=== PATIENT | female | born 1955 | race Caucasian/White ===

== ENCOUNTER 2022-01-03 09:38 | Outpatient (CLI) | payer OTHER, SELFPAY ==
--- NOTE | ~2022-01-03 | MM_ITS ---
EXAMINATION: MM screening dorothea BI w adriel HISTORY: Screening TECHNIQUE: Craniocaudal and mediolateral oblique 3-D tomosynthesis images were obtained and synthetic 2-D images were generated. CAD analysis was submitted and interpreted. COMPARISON: No prior mammogram is available for comparison at this institution. BREAST PARENCHYMAL COMPOSITION: There are scattered areas of fibroglandular density. FINDINGS: There is no evidence of suspicious mass, calcification, or architectural distortion to sugg est malignancy in either breast. There has been no suspicious interval change. IMPRESSION: 1. No mammographic evidence of malignancy. 2. Recommend routine screening mammography in one year. BI-RADS Category 1: Negative Reviewed, dictated and finalized at location A.
== END 2022-01-03 09:39 | disposition home or self-care (01) ==
DX: Z12.31 Encounter for screening mammogram for malignant neoplasm of breast (principal)
CPT/HCPCS: 77063; 77067

== ENCOUNTER 2024-11-19 07:53 | Emergency (ER) | payer MEDICARE, MEDICAID, SELFPAY ==
[2024-11-19 07:56] VITALS: BP 119/66; PULSE 63; RESP 16; TEMP 36.3; O2SAT 100
[2024-11-19] MEDS: SODIUM CHLORIDE 0.9% IV 1,000 ML 999 ML IV CONT (08:27)
[2024-11-19 08:39] LABS: Basophils Percent Auto 0.3 % (0.2-1.2); Eosinophils Absolute Auto 0.1 K/mm3 (0-0.3); Eosinophils Percent Auto 2.1 % (0-4.4); Hematocrit 37.3 % (37.0-47.0); Hemoglobin 11.4 g/dL (12.0-15.0); Immature Granulocyte Absolute 0.01 K/mm3 (0.00-0.031); Immature Granulocyte Percent A 0.2 % (0-0.5); Lymphocytes Absolute Auto 2.02 K/mm3 (0.9-3.2); Lymphocytes Percent Auto 33.2 % (18.3-44.2); Mean Corpuscular HGB Conc 30.6 g/dl (32-36); Mean Corpuscular Hemoglobin 30.8 pg (26-34); Mean Corpuscular Volume 100.8 fl (80-100); Mean Platelet Volume 10.7 fl (7.4-10.4); Monocytes Absolute Auto 0.4 K/mm3 (0.1-0.6); Monocytes Percent Auto 6.7 % (2.6-8.5); Neutrophils Absolute Auto 3.5 K/mm3 (1.3-6.7); Neutrophils Percent Auto 57.5 % (45.5-73.1); Platelet Count Result 221 k/mm3 (150-375); Red Cell Distribution Width 13.3 % (11.5-14.5); White Blood Count 6.1 K/mm3 (4.5-10.0)
[2024-11-19 08:46] LABS: Alanine Aminotransferase 12 U/L (6-35); Albumin Level 3.8 g/dL (3.5-5.1); Alkaline Phosphatase 104 U/L (38-126); Anion Gap 6 mmol/L (4-12); Aspartate Amino Transferase 21 U/L (14-36); Bilirubin,Total 0.5 mg/dL (0.2-1.3); Blood Urea Nitrogen 20 mg/dL (7-17); Calcium 9.3 mg/dL (8.4-10.2); Carbon Dioxide 29 mmol/L (22-30); Chloride 106 mmol/L (98-107); Estimated CRCL calculation 49 ml/min; Estimated Glomerular Filt Rate > 60; Glucose 80 mg/dL (65-110); Potassium 3.9 mmol/L (3.4-5.0); Sodium 141 mmol/L (137-145)
[2024-11-19 09:47] LABS: Add Urine Microscopic? YES; Appearance Urine Turbid (Clear); Bacteria Urine 4+ /hpf; Bilirubin Urine Negative (Negative); Blood Urine 2+ (Negative); Color Urine Dark Yellow (Yellow); Glucose Urine UA Negative (Negative); Ketones Urine Trace mg/dL (Negative); Leukocyte Esterase Ur 3+ LEU/UL (Negative); Nitrate Urine Positive (Negative); Non Pathogenic Casts 0-2; Protein Urine 1+ mg/dL (Negative); Specific Grav Ur 1.025 (1.001-1.035); Squamous Epithelial Cell Urine Occasional /hpf (Few); Urobilinogen Urine 0.2 mg/dL (<2.0); WBC Urine >100 /hpf (0-3); pH Urine 5.5 (5.0-9.0)
--- NOTE | 2024-11-19 10:46 | ED.GENADULT ---
HPI - General Adult General Chief complaint: Fall Stated complaint: fall Time Seen by Provider: 11/19/24 08:14 History of Present Illness HPI narrative: Patient is a 69-year-old female who presents ER by EMS after a fall at her care center. Reports right knee pain and pain to the back of her head. Denies LOC. Unable to give a good explanation of how she fell so she is orient x4. She is not on any blood thinning medications. Has what looks to be a chronic deformity to the right knee has discomfort there. Old bruising right milan and left forearm. Related Data Home Medications ?Medication ?Instructions ?Recorded ?Confirmed ?Last Taken ?Type acetaminophen 500 mg capsule 500 mg PO Q6H PRN 06/14/24 06/14/24 Unknown History atorvastatin 10 mg tablet 10 mg PO DAILY 06/14/24 06/14/24 Unknown History benztropine 0.5 mg tablet 0.5 mg PO BID 06/14/24 06/14/24 Unknown History buspirone 5 mg tablet 10 mg PO BID 06/14/24 06/14/24 Unknown History diclofenac sodium 1.5 % topical pkg topical 06/14/24 06/14/24 Unknown History drops-menthol 10 % roll-on combo pack famotidine 20 mg tablet 20 mg PO DAILY 06/14/24 06/14/24 Unknown History guaifenesin 600 mg tablet, 600 mg PO BID 06/14/24 06/14/24 Unknown History extended release 12 hr (Mucinex) mirabegron 50 mg tablet,extended 50 mg PO DAILY 06/14/24 06/14/24 Unknown History release 24 hr (Myrbetriq) montelukast 10 mg tablet 10 mg PO DAILY 06/14/24 06/14/24 Unknown History paliperidone 6 mg tablet,extended 6 mg PO QAM 06/14/24 06/14/24 Unknown History release 24 hr polyethylene glycol 3350 17 17 g PO DAILY 06/14/24 06/14/24 Unknown History gram/dose oral powder sennosides 8.6 mg-docusate sodium 1 tab-cap PO QHS 06/14/24 06/14/24 Unknown History 50 mg tablet (Senexon-S) venlafaxine 150 mg 150 mg PO DAILY 06/14/24 06/14/24 Unknown History capsule,extended release 24 hr Allergies Allergy/AdvReac Type Severity Reaction Status Date / Time Latex, Natural Rubber AdvReac Mild Unknown Verified 10/10/24 10:31 codeine AdvReac Unknown Unknown Verified 10/10/24 10:31 Sulfa (Sulfonamide AdvReac Unknown Unknown Verified 10/10/24 10:31 Antibiotics) Tetracyclines AdvReac Unknown Unknown Verified 10/10/24 10:31 antibioitcs AdvReac Unknown Unknown Uncoded 10/10/24 10:31 Review of Systems Constitutional: Constitutional: Reports no additional constitutional complaints Cardiovascular: Cardiovascular: Reports no additional cardiovascular complaints Respiratory: Respiratory: Reports no additional respiratory complaints Musculoskeletal: Musculoskeletal: Reports no additional musculoskeletal complaints Integumentary/Breasts: Skin/Breast: Reports system reviewed and no additional complaints, except as docu PMFSH Past Medical History Medical History GERD (gastroesophageal reflux disease) Anxiety Asthma Allergies Social History Social History Smoking status: Never smoker Exam Narrative: GENERAL: Well-appearing, well-nourished, and in no acute distress. HEAD: Normocephalic, atraumatic. ENT: Dry mucous membranes. NECK: Supple. C-spine immobilization in place. CHEST: Clear to auscultation. No respiratory distress. HEART: Regular rate and rhythm. Normal peripheral pulses. ABDOMEN: Soft, nontender, nondistended. EXTREMITIES: Normal range of motion. No edema. SKIN: Warm, dry, no rash. NEURO: Alert and oriented x3. Course Course Emergency Course: C-spine cleared. Ambulatory with a walker without issue. Given 1 dose antibiotic and discharged home with prescription. Daughter coming to pick her up. Vital Signs Vital signs: Vital Signs Temperature 97.3 F L 11/19/24 07:56 Pulse Rate 63 11/19/24 07:56 Respiratory Rate 16 11/19/24 07:56 Blood Pressure 119/66 11/19/24 07:56 Pulse Oximetry 100 11/19/24 07:56 Oxygen Delivery Room Air 11/19/24 07:56 Temperature 97.3 F L 11/19/24 07:56 Pulse Rate 63 11/19/24 11:22 Respiratory Rate 18 11/19/24 11:22 Blood Pressure 134/67 11/19/24 11:22 Pulse Oximetry 98 11/19/24 11:22 Oxygen Delivery Room Air 11/19/24 07:56 Medical Decision Making Vital Signs Vital Signs: Vital Signs Temperature 97.3 F L 11/19/24 07:56 Pulse Rate 63 11/19/24 07:56 Respiratory Rate 16 11/19/24 07:56 Blood Pressure 119/66 11/19/24 07:56 Pulse Oximetry 100 11/19/24 07:56 Oxygen Delivery Room Air 11/19/24 07:56 Temperature 97.3 F L 11/19/24 07:56 Pulse Rate 63 11/19/24 11:22 Respiratory Rate 18 11/19/24 11:22 Blood Pressure 134/67 11/19/24 11:22 Pulse Oximetry 98 11/19/24 11:22 Oxygen Delivery Room Air 11/19/24 07:56 Lab Data 11/19/24 08:28 11/19/24 08:28 Labs: Lab Results 11/19/24 11/19/24 Range/Units 08:28 09:34 WBC 6.1 (4.5-10.0) K/mm3 RBC 3.70 L (4.2-5.4) M/mm3 Hgb 11.4 L (12.0-15.0) g/dL Hct 37.3 (37.0-47.0) % MCV 100.8 H (80-100) fl MCH 30.8 (26-34) pg MCHC 30.6 L (32-36) g/dl RDW 13.3 (11.5-14.5) % Plt Count 221 (150-375) k/mm3 MPV 10.7 H (7.4-10.4) fl Immature Gran % (Auto) 0.2 (0-0.5) % Neut % (Auto) 57.5 (45.5-73.1) % Lymph % (Auto) 33.2 (18.3-44.2) % Motley % (Auto) 6.7 (2.6-8.5) % Eos % (Auto) 2.1 (0-4.4) % Baso % (Auto) 0.3 (0.2-1.2) % Lymph # (Auto) 2.02 (0.9-3.2) K/mm3 [place] # (Auto) 0.4 (0.1-0.6) K/mm3 Eos # (Auto) 0.1 (0-0.3) K/mm3 Baso # (Auto) 0.0 (0.0-0.1) K/mm3 Abs Immat Gran (auto) 0.01 (0.00-0.031) K/mm3 Absolute Neuts (auto) 3.5 (1.3-6.7) K/mm3 Absolute Nucleated RBC 0.000 (0.0-0.012) K/mm3 Nucleated RBC % 0.0 (0.0-0.2) % Sodium 141 (137-145) mmol/L Potassium 3.9 (3.4-5.0) mmol/L Chloride 106 (98-107) mmol/L Carbon Dioxide 29 (22-30) mmol/L Anion Gap 6 (4-12) mmol/L BUN 20 H (7-17) mg/dL Creatinine 0.71 (0.7-1.0) mg/dL Estim Creat Clear Calc 49 ml/min Estimated GFR > 60 (59 - ) Glucose 80 (65-110) mg/dL Calcium 9.3 (8.4-10.2) mg/dL Total Bilirubin 0.5 (0.2-1.3) mg/dL AST 21 (14-36) U/L ALT 12 (6-35) U/L Alkaline Phosphatase 104 (38-126) U/L Total Protein 7.0 (6.3-8.2) g/dL Albumin 3.8 (3.5-5.1) g/dL Urine Color Dark yellow (Yellow) Urine Appearance Turbid H (Clear) Urine pH 5.5 (5.0-9.0) Ur Specific Virgin 1.025 (1.001-1.035) Urine Protein 1+ H (Negative) mg/dL Urine Glucose (UA) Negative (Negative) mg/dL Urine Ketones Trace H (Negative) mg/dL Ur Blood (Man) 2+ H (Negative) Urine Nitrate Positive H (Negative) Urine Bilirubin Negative (Negative) Urine Urobilinogen 0.2 (<2.0) mg/dL Leukocyte Esterase Rfl 3+ H (Negative) STONE/UL Urine RBC 6-10 H (0-2) /hpf Urine WBC >100 H (0-3) /hpf Ur Squamous Epith Cells Occasional (Few) /hpf Urine Bacteria 4+ H /hpf Urine Casts 0-2 Imaging Data Radiologist's impression: ITS Impressions Knee X-Ray 11/19/24 08:41 IMPRESSION: 1. No left knee joint effusion or acute osseous abnormality. 2. Old healed fracture deformity at the proximal right tibia with moderate secondary tricompartmental osteoarthritis at the left knee. 3. Kel-Stieda lesion with heterotopic ossification in the region of the proximal medial collateral ligament consistent with sequela of chronic sprain. Head CT 11/19/24 09:02 IMPRESSION: 1. No fracture or acute intracranial process. 2. Empty sella which could be seen in the setting of idiopathic intracranial hypertension. 2. Mild scattered white matter hypoattenuation consistent with chronic small vessel ischemic disease. Cervical Spine CT 11/19/24 09:11 IMPRESSION: 1. Mild cervical spondylosis. No acute osseous abnormality. Discharge Plan Discharge Clinical Impression: Acute UTI Patient Disposition: Home, Self-Care Condition: Stable Instructions: Antibiotic Form, Urinary Tract Infection in Women (ED) Additional Instructions: You should return to the emergency department if you develop severe nausea and vomiting and are unable to keep liquids down, if you develop severe back/flank or stomach pain, or if your symptoms are not clearly improving at home. Patient Language: Cambodian Prescriptions: New cefuroxime axetil 500 mg tablet 500 mg PO BID Qty: 14 0RF No Action buspirone 5 mg tablet 10 mg PO BID benztropine 0.5 mg tablet 0.5 mg PO BID atorvastatin 10 mg tablet 10 mg PO DAILY sennosides-docusate sodium [Senexon-S] 8.6-50 mg tablet 1 tab-cap PO QHS venlafaxine 150 mg capsule,extended release 24hr 150 mg PO DAILY famotidine 20 mg tablet 20 mg PO DAILY montelukast 10 mg tablet 10 mg PO DAILY polyethylene glycol 3350 17 gram/dose powder 17 g PO DAILY acetaminophen 500 mg capsule 500 mg PO Q6H PRN paliperidone 6 mg tablet extended release 24 hr 6 mg PO QAM mirabegron [Myrbetriq] 50 mg tablet extended release 24 hr 50 mg PO DAILY guaifenesin [Mucinex] 600 mg tablet extended release 12hr 600 mg PO BID diclofenac sodium-menthol 1.5-10 % combo pack topical Follow-up/Referrals: Camden Patel MD [Physician] - 1 Week UNKNOWN,DOCTOR [Primary Care Provider] - 1 Week
[2024-11-19 11:22] VITALS: BP 134/67; PULSE 63; RESP 18; O2SAT 98
[2024-11-19] MEDS: cefuroxime axetiL 250 MG TABLET 500 MG PO (12:37)
[2024-11-19 13:06] VITALS: BP 137/70; PULSE 76; RESP 18; O2SAT 99
== END 2024-11-19 13:52 ==
PROVIDERS: Emergency Provider Emergency Medicine
DX: N39.0 Urinary tract infection, site not specified (principal); S09.90XA Unspecified injury of head, initial encounter; S89.91XA Unspecified injury of right lower leg, initial encounter; K21.9 Gastro-esophageal reflux disease without esophagitis; J45.909 Unspecified asthma, uncomplicated; Z79.899 Other long term (current) drug therapy; M47.812 Spondylosis without myelopathy or radiculopathy, cervical region; W19.XXXA Unspecified fall, initial encounter
CPT/HCPCS: 36415; 70450; 72125; 73562; 80053; 81001; 85025; 87086; 87186; 96360; 99284; A9270; J7030

== ENCOUNTER 2025-06-02 20:15 | Emergency (ER) | payer MEDICARE, MEDICAID, SELFPAY ==
--- NOTE | ~2025-06-02 | CT_ITS ---
EXAMINATION: CT cervical spine wo con DATE: 06/02/2025 21:00 INDICATION: Neck pain after fall TECHNIQUE: Computed tomography (CT) of the cervical spine was performed without intravenous contrast. The dose-length product was 88 mGy-cm. COMPARISON: CT dated 11/19/2024 FINDINGS: Normal cervical alignment. Vertebral body heights are maintained. Craniovertebral junction is normal. Odontoid process is normal. No acute fracture or traumatic malalignment. No significant paraspinal soft tissue abnormality. Lung apices are normal. There is mild degenerative changes of the u ncinate joints. IMPRESSION: 1. No acute abnormality of the cervical spine. Reviewed, dictated and finalized at location O.
--- NOTE | ~2025-06-02 | CT_ITS ---
EXAMINATION: CT brain wo con DATE: 06/02/2025 21:00 INDICATION: Status post fall. TECHNIQUE: Computed tomography (CT) of the head was performed without intravenous contrast. The dose-length product was 605.33 mGy-cm. Automated exposure control and iterative reconstruction technique were employed. COMPARISON: CT dated 11/19/2024 FINDINGS: Brain parenchymal volume is normal for age. There are scattered mild periventricular and subcortical white matter changes, most likely related to small vessel ischemic disease (microangiopathy). No ventriculomegaly or midline shift. Basilar cisterns are patent. There is intracranial atherosclerosis. No acute hemorrhage, infarction or mass. Paranasal sinuses are unremarkable. Mastoids are pneumatized. No depressed skull fractures. Empty sellar reidentified. IMPRESSION: 1. No acute intracranial abnormality. Reviewed, dictated and finalized at location O.
--- NOTE | ~2025-06-02 | XR_ITS ---
XR shoulder LT min 2V 06/02/2025 20:49 INDICATION: Left shoulder pain after fall PROCEDURE: 3 views left shoulder COMPARISON: No prior studies for comparison. FINDINGS: Fracture, dislocation or subluxation is not identified. The soft tissues appear within normal limits. No foreign bodies are identified. IMPRESSION: 1: NO ACUTE BONE OR JOINT ABNORMALITY IDENTIFIED. Reviewed, dictated and finalized at location O.
--- NOTE | ~2025-06-02 | XR_ITS ---
XR knee RT 3V 06/02/2025 20:49 Indication: Right knee pain after fall Procedure: 3 views right knee Comparison: 11/19/2024 Findings: There is sequela of old proximal tibial fracture. There is advanced osteoarthritis of the knee. There is an old injury of the medial collateral ligament with ossification proximally. Osteopenia. No acute fracture. No joint effusion. Impression: 1: No acute bone or joint abnormality. Reviewed, dictated and finalized at location O. Impression: 1: No acute bone or joint abnormality.
--- NOTE | ~2025-06-02 | XR_ITS ---
XR elbow LT min 3V 06/02/2025 20:49 Indication: Left elbow pain after fall Procedure: 3 views left elbow Comparison: No prior studies for comparison. Findings: There are small ossific densities on the ulnar aspect of the distal humerus, likely related to old trauma. No acute fracture or traumatic malalignment. No significant joint effusion. 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 Impression: 1: No acute fracture. Reviewed, dictated and finalized at location O. Impression: 1: No acute fracture.
--- NOTE | ~2025-06-02 | XR_ITS ---
XR knee LT 3V 06/02/2025 20:49 INDICATION: Left knee pain after fall PROCEDURE: 3 views left knee COMPARISON: No prior studies for comparison. FINDINGS: Fracture, dislocation or subluxation is not identified. Osteopenia. No significant joint effusion. The soft tissues appear within normal limits. No foreign bodies are identified. IMPRESSION: 1: NO ACUTE BONE OR JOINT ABNORMALITY IDENTIFIED. Reviewed, dictated and finalized at location O.
[2025-06-02 20:17] VITALS: BP 131/63; PULSE 64; RESP 16; TEMP 36.9; O2SAT 100
--- OUTSIDE RECORDS SUMMARY | 2025-06-02 20:18 | XMS_ITS | Clinical Summary ---
Author Organization [facility] Address [address] [place] [address] Care Team Providers Care Wafer Fabrication Technician Name Role Phone Unavailable Primary Care Provider Unavailabl e Source Comments [facility],non-owned Affiliates and Associated Physician Practices is amultiple site organization consisting of ambulatory clinics and hospital sitesin [place], [place], [place] and [place]. This disclosure is being madepursuant to the Care Everywhere program and may not contain all information available regarding this patient. Last updated 18.[facility] Allergies Active Allergy Reactions Criticality Noted Date Comments Codeine Other 05/18/2023 Per facility/pt unsure Latex Other 05/18/2023 Per facility/pt unsure Sulfa Drugs Unknown 05/04/2023 Tetracyclines Unknown 05/04/2023 Medications * Be aware that medications may not be up to date on this document. Alwaysverify current medications with the patient. acetaminophen (Tylenol) 500 MG tablet Take 2 (two) tablets by mouth every 6 hours while awake Maximum allowable Acetaminophen amount = 4 Grams (4000 mg) / 24 hours. 3 Active albuterol HFA (Proventil; Ventolin; Proair) 108 (90 Base) MCG/ACT inhaler Inhale 2 (two) puffs by mouth every 4 hours as needed for Shortness of Breath or Wheezing 3 Active montelukast (Singulair) 10 MG tablet Take 1 (one) tablet by mouth at bedtime 3 Active venlafaxine XR 24hr (Effexor XR) 75 MG capsule Take 3 (three) capsules by mouth daily with breakfast 3 Active loratadine (Claritin) 10 MG tablet Take 1 (one) tablet by mouth once daily 3 Active rosuvastatin (Crestor) 5 MG tablet Take 1 (one) tablet by mouth once daily 3 Active fluticasone propionate (Flonase) 50 MCG/ACT nasal spray [place] 2 (two) sprays into each nostril 2 times daily 3 Active pantoprazole EC (Protonix) 40 MG tablet Take 1 (one) tablet by mouth once daily 3 Active LORazepam (Ativan) 0.5 MG tablet Take 1 (one) tablet by mouth once daily as needed for Anxiety 3 Active paliperidone palmitate ER (Invega Sustenna) 234 MG/1.5ML injection Inject 234 (two hundred thirty four) mg into muscle once Inject 1 1/2 ml's every 4 weeks Active Active Problems Problem Noted Date Diagnosed Date NPH (normal pressure hydrocephalus) 11/28/2024 Acute midline low back pain without sciatica Acute midline thoracic back pain 05/18/2023 Closed fracture of multiple ribs of left side, initial encounter 05/04/2023 Rhabdomyolysis 05/04/2023 Acute pain due to injury 05/04/2023 Impaired mobility and ADLs 05/04/2023 Forehead laceration 05/04/2023 Rib fracture 05/04/2023 Lumbar transverse process fracture 05/04/2023 Immunizations Immunization Administration Dates Next Due TDAP (7yrs+) 05/04/2023 Social History Tobacco Use Types Packs/Day Years Used Date Smoking Tobacco: Never Smokeless Tobacco: Never Alcohol Use Standard Drinks/Week Comments Never 0 (1 standard drink = 0.6 oz pur e alcohol) AUDIT-C Answer Date Recorded Q1: How often do you have a drink containing alcohol? Never 05/04/2023 Q2: How many drinks containi ng alcohol do you have on a typical day when you are drinking? Patient does not drink Q3: How often do you have si x or more drinks on one occasion? Never 05/04/2023 Comments No Sex and Gender Information Value Date Recorded Sex Assigned at Not on file Legal Sex Female 3:13 AM CDT Gender Identity Not on file Sexual Orientation Not on file Last Filed Vital Signs Vital Sign Reading Time Taken Comments Blood Pressure 128/63 05/05/2023 8:11 AM CDT Pulse 68 05/05/2023 8:11 AM CDT Temperature 36.8 C (98.2 F) 05/05/2023 8:11 AM CDT Respiratory Rate 16 05/05/2023 8:11 AM CDT Oxygen Saturation 99% 05/05/2023 8:11 AM CDT Inhaled Oxygen Concentration - - Weight 77.1 kg (170 lb) 05/04/2023 3:11 AM CDT Height 154.9 cm (5' 1) 05/04/2023 3:11 AM CDT Body Mass Index 32.12 05/04/2023 3:11 AM CDT Plan of Treatment Health Maintenance Due Date Last Done Comments BONE DENSITY TESTING 1955 COLOGUARD (AGES 45-75) - COL ON CA SCREENING 1955 COLON MONITORING 1955 COLONOSCOPY - COLON CA SCREENING 1955 CT COLONOGRAPHY - COLON CA SCREENING 1955 Colorectal Cancer Screening 1955 FIT - COLON CA SCREENING 1955 FLEX SIG - COLON CA SCREENING 1955 MAMMOGRAM 1955 HEPATITIS C SCREENING 09/28/1973 PNEUMOCOCCAL VACCINE 50+ (1 of 1 - PCV) 2005 ZOSTER VACCINE (1 of 2) 2005 Respiratory Syncytial Virus (RSV) Vaccine Pt: or over 60 yrs (1 - Risk 60-74 years 1-dose series) 2015 COVID-19 VACCINE (1 - 2023-2 5 season) 2024 DEPRESSION SCREENING 09/21/2024 INFLUENZA VACCINE (#1) 2025 SCREENING FOR DIABETES 05/04/2026 05/04/2023 DTAP/TDAP/TD VACCINES (2 - T d or Tdap) 05/04/2033 05/04/2023 HEPATITIS B VACCINE Aged Out No longe r eligible based on patient's age to complete this topic HIB VACCINE Aged Out No longer eligi ble based on patient's age to complete this topic HPV VACCINE Aged Out No longer eligi ble based on patient's age to complete this topic MENINGOCOCCAL (Group B) VACC INE SHARED DECISION-MAKING Aged Out No longer eligibl e based on patient's age to complete this topic MENINGOCOCCAL GROUPS A/C/Y/W VACCINE Aged Out No longer eligible b ased on patient's age to complete this topic Procedures Procedure Name Priority Date/Time Associated Diagnosis Comments COMPREHENSIVE METABOLIC PANEL STAT 05/04/2023 3:25 AM CDT from Last 3 Months or Most Recently Relevant to Health Maintenance Results * (ABNORMAL) COMPREHENSIVE METABOLIC PANEL (05/04/2023 3:25 AM CDT) BUN 27(H) 7 - 26 mg/dL 05/04/2023 4:08 AM [facility] Creatinine 0.84 0.56 - 0.96 mg/dL 05/04/2023 4:08 AM [facility] Sodium 140 136 - 145 mmol/L 05/04/2023 4:08 AM [facility] Potassium 3.6 3.5 - 4.5 mmol/L 05/04/2023 4:08 AM [facility] Chloride 107 98 - 107 mmol/L 05/04/2023 4:08 AM [facility] CO2 25 22 - 29 mmol/L 05/04/2023 4:08 AM [facility] Glucose 157(H) 70 - 115 mg/dL 05/04/2023 4:08 AM [facility] Calcium 8.7 8.4 - 10.2 mg/dL 05/04/2023 4:08 AM [facility] Protein Total 6.0 6.0 - 8.3 g/dL 05/04/2023 4:08 AM [facility] Albumin 3.4 3.4 - 5.0 g/dL 05/04/2023 4:08 AM [facility] Bilirubin Total 0.3 0.2 - 1.2 mg/dL 05/04/2023 4:08 AM [facility] Alkaline Phosphatase 61 40 - 150 U/L 05/04/2023 4:08 AM [facility] ALT 15 5 - 55 U/L 05/04/2023 4:08 AM [facility] AST 29 5 - 34 U/L 05/04/2023 4:08 AM [facility] Anion Gap 12 8 - 18 05/04/2023 4:08 AM [facility] BUN/Creatinine Ratio 32(H) 7 - 23 05/04/2023 4:08 AM [facility] Osmolality Calculated 298 270 - 300 mOsm/kg 05/04/2023 4:08 AM [facility] Albumin/Globulin Ratio 1.3 1.1 - 2.3 05/04/2023 4:08 AM [facility] eGFR by CKD-EPI 76(L) >=90 mL/min/1.7 3 m2 05/04/2023 4:08 AM [facility] Blood BLOOD SPECIMEN / Unknown Venipuncture / Unknown 05/04/2023 3:25 AM CDT 05/04/2023 3:44 AM T us Jassi Doyle MD LAB - CHEMISTRY ORDERABLES F inal Result [facility] [address] [place] [address], [facility] [phone] from Last 3 Months or Most Recently Relevant to Health Maintenance Insurance [facility] Advance Directives * Full Code (Latest Code Status on File) Date Activated Date Inactivated Comments 05/04/2023 8:06 AM 05/05/2023 6:17 PM
--- OUTSIDE RECORDS SUMMARY | 2025-06-02 20:18 | XMS_ITS | Clinical Summary ---
Author Organization [facility] Address [address] [place] [address] Phone Care Team Providers Care Dynamicist Name Role Phone Leon Black MD Primary Care Provider [phone] Bang White APRN, BUILDING CONSTRUCTION FOREMAN Unavailable [phone] Allergies Active Allergy Reactions Criticality Noted Date Comments Aspirin Unknown 08/18/2018 Codeine Other (see Comments) Low 07/01/2024 Doesn't remember Latex Rash Medium 07/01/2024 Sulfa Antibiotics Other (see Comments) 08/18/20 18 Tetracycline Other (see Comments) 08/18/2018 Olanzapine Other (see Comments) 08/18/2018 Medications venlafaxine (EFFEXOR) 75 MG Tablet Take 225 mg by mouth daily. Active venlafaxine (EFFEXOR-XR) 150 MG CAPSULE SR 24 HR Take 150 mg by mouth daily. Active Cholecalcifero l (VITAMIN D-3) 1000 units Capsule Take 2,000 Units by mouth daily. Active felodipine (PLENDIL) 5 MG TABLET SR 24 HR Take 5 mg by mouth daily. Active Aspirin 81 MG Tablet Take 81 mg by mouth daily. Active LORazepam (ATIVAN) 0.5 MG Tablet Take 0.5 mg by mouth. Active omeprazole (PriLOSEC) 20 MG CAPSULE DELAYED RELEASE Take 20 mg by mouth. Active nabumetone (RELAFEN) 500 MG Tablet 8 Active montelukast (SINGULAIR) 10 MG Tablet Take 10 mg by mouth. Active Paliperidone Palmitate ER (INVEGA) 234 MG/1.5ML Suspension Prefilled Syringe 234 mg by Intramuscular route. Active Loratadine 10 MG Capsule Take by mouth. Acti ve fluticasone (FLONASE) 50 MCG/ACT Suspension 1 [place] by Nasal route. Active ergocalciferol (VITAMIN D) 56126 UNIT Capsule TAKE 1 CAPSULE WEEKLY FOR 8 WEEKS. AFTER THIS IS DONE, TAKE VITAMIN D3 2000 IU DAILY. 8 Active Acetaminophen 500 MG Capsule Take by mouth. Active albuterol 108 (90 Base) MCG/ACT Aerosol Solution take 2 Puffs by inhalation. Active Diclofenac Sodium (VOLTAREN) 1 % Gel Apply. Active atorvastatin (LIPITOR) 10 MG Tablet Take 10 mg by mouth. Active Caplyta 42 MG Capsule 99 3 Active busPIRone (BUSPAR) 10 MG Tablet 99 3 Active venlafaxine (EFFEXOR-XR) 75 MG CAPSULE SR 24 HR 99 3 Active famotidine (PEPCID) 20 MG Tablet Take 20 mg by mouth daily. Active benztropine (COGENTIN) 0.5 MG Tablet Take 0.5 mg by mouth. Active Paliperidone (INVEGA) 6 MG TABLET SR 24 HR Take 6 mg by mouth. Active polyethylene glycol (GLYCOLAX) 17 GM/SCOOP Powder Take 17 g by mouth. Active guaiFENesin (MUCINEX) 600 MG TABLET SR 12 HR Take 600 mg by mouth. Active mirtazapine (REMERON) 30 MG Tablet Take 30 mg by mouth. Active Mirabegron ER (Myrbetriq) 50 MG TABLET SR 24 HRIndications: Urinary frequency,Urin ayo urgency Take 50 mg by mouth daily. 90 Tablet 1 5 Active Social History Tobacco Use Types Packs/Day Years Used Date Smoking Tobacco: Never Smokeless Tobacco: Never Alcohol Use Standard Drinks/Week Comments No 0 (1 standard drink = 0.6 oz pur e alcohol) Comments No Sex and Gender Information Value Date Recorded Sex Assigned at Not on file Legal Sex Female 11:30 AM APRON CLEANER Gender Identity Not on file Sexual Orientation Not on file Last Filed Vital Signs Vital Sign Reading Time Taken Comments Blood Pressure 106/70 01/03/2025 10:31 AM CDT Pulse 87 01/03/2025 10:31 AM CDT Temperature 36.8 C (98.2 F) 08/18/2018 11:34 AM APRON CLEANER Respiratory Rate 19 07/05/2024 10:50 AM CDT Oxygen Saturation 97% 01/03/2025 10:31 AM CDT Inhaled Oxygen Concentration - - Weight 54.9 kg (121 lb) 01/03/2025 10:31 AM CDT Height 154.9 cm (5' 1) 01/03/2025 10:31 AM CDT Body Mass Index 22.86 01/03/2025 10:31 AM CDT Plan of Treatment Upcoming Encounters Date Type Department Care Team (Late st Contact Info) Description 07/03/2025 10:00 AM CDT Office Visit [facility] [address] [place] [address] Bang White APRN, BUILDING CONSTRUCTION FOREMAN [address] [place] [address] Health Maintenance Due Date Last Done Comments DEXA Bone Density 1955 Hepatitis C Virus (HCV) Screening 1955 Mammogram 1955 TdaP Immunization 1955 Cologuard 2000 Colonoscopy 2000 Colorectal Cancer Screening 2000 Immunochemical Fecal Occult Blood 2000 Zoster Immunization (2 of 3) 11/07/2016 09/12/2016 Pneumococcal Immunization (5 0+ years) (2 of 2 - PCV) 09/09/2017 09/09/2016 Influenza Immunization (#1) 2025 SARS-COV-2 Immunization ( season) 2025 07/02/2023, 02/22/2021, 01/25/2021 Respiratory Syncytial Virus (RSV) Immunization (Adult) (1 - 1-dose 75+ series) 2030 Pneumococcal Immunization Combined Discontinued 09/09/2016 Hepatitis B Immunization Aged Out No longer eligible based on patient's age to complete this topic Human Papillomavirus (HPV) Immunization Aged Out No longer eligible based on patient's age to complete this topic Meningococcal Immunization (ACWY) Aged Out No longer eligible based on patient's age to complete this topic Rotavirus Immunization Aged Out No lo nger eligible based on patient's age to complete this topic Insurance MEDICARE MEDICAID [place] Care Teams Dynamicist Relationship Specialty Start Date End Date Leon Black MD [facility] [address] [address] PCP - General Internal Medicine 08/18/18 Bang White APRN, BUILDING CONSTRUCTION FOREMAN [address] [place] [address] Nurse Practitioner Advanced Practice Nurse 07/28/23
--- OUTSIDE RECORDS SUMMARY | 2025-06-02 20:18 | XMS_ITS | Clinical Summary ---
Author Organization [facility] Address [address] [place] [id number] Care Team Providers Care Cook Helper Dessert Name Role Phone No, Physician Primary Care Provider [phone] Allergies Active Allergy Reactions Criticality Noted Date Comments Aspirin Unknown 08/18/2018 Codeine Other (See comments) Low 07/01/2024 Doesn't remember Latex Rash Medium 07/01/2024 Olanzapine Other (See comments) Low 08/18/2018 Sulfa (Sulfonamide Antibiotics) Other (See comments) Low 08/18/2018 Tetracycline Other (See comments) Low 08/18/2018 Medications cholecalciferol (VITAMIN D-3) 1,000 unit capsule Take 2 capsules (2,000 Units total) by mouth daily Active felodipine (PLENDIL) 5 mg 24 hr tablet Take 1 tablet (5 mg total) by mouth daily Active venlafaxine (EFFEXOR) 75 mg tablet Take 1 tablet (75 mg total) by mouth daily Active paliperidone (INVEGA SUSTENNA) 234 mg/1.5 mL syringe Inject 1.5 mL (234 mg total) into the muscle as instructed Active atorvastatin (LIPITOR) 10 mg tablet Take 1 tablet (10 mg total) by mouth daily Active loratadine 10 mg capsule Take by mouth Activ e omeprazole (PriLOSEC) 20 mg capsule Take 1 capsule (20 mg total) by mouth daily Active fluticasone propionate (FLONASE) 50 mcg/actuation nasal spray Administer 1 spray into each nostril daily Active acetaminophen 500 mg capsule Take by mouth A ctive montelukast (SINGULAIR) 10 mg tablet Take 1 tablet (10 mg total) by mouth nightly Active albuterol 0.63 mg/3 mL nebulizer solution Take 3 mL (0.63 mg total) by nebulization every 6 (six) hours as needed for wheezing Active LORazepam (ATIVAN) 0.5 mg tablet Take 1 tablet (0.5 mg total) by mouth every 6 (six) hours as needed for anxiety Active diclofenac sodium (VOLTAREN) 1 % gel Apply topically Acti ve paliperidone palmitate, 3-month, (Invega Trinza) 819 mg/2.63 mL syringe Inject 2.63 mL (819 mg total) into the muscle as instructed every 3 (three) months Active famotidine (PEPCID) 20 mg tablet Take 1 tablet (20 mg total) by mouth daily Active mirabegron ER (MYRBETRIQ) 50 mg tablet extended release 24 hr Take 1 tablet (50 mg total) by mouth daily 4 Active paliperidone ER (INVEGA) 6 mg 24 hr tablet Take 1 tablet (6 mg total) by mouth every morning Active polyethylene glycol (MIRALAX) 17 gram/dose bulk powder Take 17 g by mouth daily Active UNABLE TO FIND Venlafaxine HCL ER 150mg take one capsule po once dailly Active benztropine (COGENTIN) 0.5 mg tablet Take 1 tablet (0.5 mg total) by mouth 2 (two) times a day Active guaiFENesin ER (MUCINEX) 600 mg 12 hr tablet Take 1 tablet (600 mg total) by mouth 2 (two) times a day Active UNABLE TO FIND Senexon-s 50-8.6 mg twice daily Active busPIRone (BUSPAR) 5 mg tabletIndicatio ns:Generalized Anxiety Disorder Take 1 tablet (5 mg total) by mouth 3 (three) times a day Take one tablet in the morning , 2 tabs at noon and 2 tabs in the evening Active mirtazapine (REMERON) 30 mg tablet Take 1 tablet (30 mg total) by mouth nightly Active albuterol HFA (PROVENTIL HFA,VENTOLIN HFA,PROAIR HFA) 90 mcg/actuation inhaler Inhale 2 puffs every 4 (four) hours as needed for wheezing Active UNABLE TO FIND Vicente-gest 500 mg chew tablet take one tab po twice daily as needed Active amantadine (SYMMETREL) 100 mg capsule Take 1 capsule (100 mg total) by mouth 2 (two) times a day Active meloxicam (MOBIC) 7.5 mg tabletIndicatio ns:Osteoarthrit is Take 1 tablet (7.5 mg total) by mouth daily 45 tablet Active Active Problems No known active problems Encounters Date Type Department Care Team Description 03/31/2025 9:40 AM CDT [facility] [address] [place] [address] 4[address] [place] [address] Post-traumatic osteoarthritis of right knee (Primary Dx); Arthritis of knee, right; Knee pain, unspecified chronicity, unspecified laterality from Last 3 Months Surgical History Surgery Date Site/Laterality Comments KNEE SURGERY after fall fracture Medical History Medical History Date Comments Arthritis Stroke (HCC) Asthma Social History Tobacco Use Types Packs/Day Years Used Date Smoking Tobacco: Never Smokeless Tobacco: Never Tobacco Cessation:Counseling Given: Not Answered AUDIT-C Answer Date Recorded Q1: How often do you have a drink containing alc ohol? Never 07/01/2024 Average Number of Drinks Not on file 024 Frequency of Binge Drinking Not on file 06/21 Hunger Vital Sign Answer Date Recorded Within the past 12 months, y ou worried that your food would run out before you got the money to buy more. Never true 03/31/20 25 Within the past 12 months, t he food you bought just didn't last and you didn't have money to get more. Never true 03/31/2025 Comments Unknown Sex and Gender Information Value Date Recorded Sex Assigned at Not on file Legal Sex Female 10:55 AM CDT Gender Identity Not on file Sexual Orientation Not on file Obstetrics History Last Filed Vital Signs Vital Sign Reading Time Taken Comments Blood Pressure 130/74 05/27/2023 10:55 AM CDT Pulse 81 05/27/2023 10:55 AM CDT Temperature 35.9 C (96.7 F) 05/27/2023 10:55 AM CDT Respiratory Rate 16 05/27/2023 10:5 5 AM CDT Oxygen Saturation 99% 05/27/2023 10: 55 AM CDT Inhaled Oxygen Concentration - - Weight 52.1 kg (114 lb 12.8 oz) 025 10:33 AM CDT Height 154.9 cm (5' 1) 03/31/2025 10:3 3 AM CDT Body Mass Index 21.69 03/31/2025 10:33 AM CDT Plan of Treatment Health Maintenance Due Date Last Done Comments Breast Cancer Screening-Mammogram 1955 Colon Cancer Screening-Colonoscopy 1955 Depression Screening 1955 Fall Risk Assessment 1955 Hepatitis C Screening 1955 Osteoporosis Screening-Bone Density Scan 1955 Hepatitis B Screening 1973 Zoster Vaccine (2 of 3) 11/07/2016 09/12/2016 Pneumococcal vaccine 65+ (2 of 2 - PCV) 09/09/2017 1 11/10/2015 Well Visit 65+ 2020 Influenza Vaccine (#1) 2025 DTaP/Tdap/Td Vaccine (2 - Td or Tdap) 05/04/2033 Insurance [employer] [place] MED[place] MEDICARE IDPA Care Teams Cook Helper Dessert Relationship Specialty Start Date End Date No, Physician PCP - General 03/05/23
--- NOTE | 2025-06-02 23:19 | ED.FALL ---
HPI - Fall General Chief Complaint: Fall Stated Complaint: GLF Time Seen by Provider: 06/02/25 23:02 History of Present Illness HPI Narrative: Patient is a 69-year-old female who presents the emergency department this evening status post a ground level fall. Patient states that she stood up too fast and fell down. Upon EMS arrival, patient was found on the floor. She is complaining of left mandaen pain, left shoulder pain, left elbow pain and bilateral knee pain. Denies any loss of consciousness. Patient is unsure if she takes any blood thinners, however, per chart review, no blood thinners were noted at patient's medication list. Otherwise no additional symptoms or concerns. Related Data Home Medications ?Medication ?Instructions ?Recorded ?Confirmed ?Last Taken ?Type acetaminophen 500 mg capsule 500 mg PO Q6H PRN 06/14/24 06/14/24 Unknown History atorvastatin 10 mg tablet 10 mg PO DAILY 06/14/24 06/14/24 Unknown History benztropine 0.5 mg tablet 0.5 mg PO BID 06/14/24 06/14/24 Unknown History buspirone 5 mg tablet 10 mg PO BID 06/14/24 06/14/24 Unknown History diclofenac sodium 1.5 % topical pkg topical 06/14/24 06/14/24 Unknown History drops-menthol 10 % roll-on combo pack famotidine 20 mg tablet 20 mg PO DAILY 06/14/24 06/14/24 Unknown History guaifenesin 600 mg tablet, 600 mg PO BID 06/14/24 06/14/24 Unknown History extended release 12 hr (Mucinex) mirabegron 50 mg tablet,extended 50 mg PO DAILY 06/14/24 06/14/24 Unknown History release 24 hr (Myrbetriq) montelukast 10 mg tablet 10 mg PO DAILY 06/14/24 06/14/24 Unknown History paliperidone 6 mg tablet,extended 6 mg PO QAM 06/14/24 06/14/24 Unknown History release 24 hr polyethylene glycol 3350 17 17 g PO DAILY 06/14/24 06/14/24 Unknown History gram/dose oral powder sennosides 8.6 mg-docusate sodium 1 tab-cap PO QHS 06/14/24 06/14/24 Unknown History 50 mg tablet (Senexon-S) venlafaxine 150 mg 150 mg PO DAILY 06/14/24 06/14/24 Unknown History capsule,extended release 24 hr Allergies Allergy/AdvReac Type Severity Reaction Status Date / Time Latex, Natural Rubber AdvReac Mild Unknown Verified 10/10/24 10:31 codeine AdvReac Unknown Unknown Verified 10/10/24 10:31 Sulfa (Sulfonamide AdvReac Unknown Unknown Verified 10/10/24 10:31 Antibiotics) Tetracyclines AdvReac Unknown Unknown Verified 10/10/24 10:31 antibioitcs AdvReac Unknown Unknown Uncoded 10/10/24 10:31 Review of Systems Review of Systems: All systems are reviewed and are negative unless stated otherwise in the HPI. [facility] Past Medical History Medical History GERD (gastroesophageal reflux disease) Anxiety Asthma Allergies Social History Social History Smoking status: Never smoker Exam Narrative: General: Alert, awake, afebrile, in no acute distress. HEENT: PERRL, no rhinorrhea, no post nasal drip, oropharynx clear. Neck: Trachea midline, no JVD, no lymphadenopathy, C-collar in place, no midline tenderness to palpation over the cervical spine. Cardiovascular: Regular rate and rhythm, no murmurs, rubs or gallops, no peripheral edema. Respiratory: Clear to auscultation bilaterally, no tachypnea, no wheezing, no rhonchi, no rubs, no respiratory distress. Abdomen: Soft, nontender, nondistended, no rebound, no guarding, no peritoneal signs. Musculoskeletal: No joint swelling or deformity, normal muscle tone, moving all extremities spontaneously with intact full range of motion of all extremities. Skin: No rashes or petechia, no signs of infection. Psychiatric: Alert and oriented, normal behavior and judgment for situation. Neurological: Alert and oriented to person, place, and time. Follows all commands. No focal deficits, speech is clear and fluent. Course Vital Signs Vital signs: Vital Signs Temperature 98.4 F 06/02/25 20:17 Pulse Rate 64 06/02/25 20:17 Respiratory Rate 16 06/02/25 20:17 Blood Pressure 131/63 06/02/25 20:17 Pulse Oximetry 100 06/02/25 20:17 Oxygen Delivery Room Air 06/02/25 20:17 Temperature 98.4 F 06/02/25 20:17 Pulse Rate 64 06/02/25 20:17 Respiratory Rate 16 06/02/25 20:17 Blood Pressure 131/63 06/02/25 20:17 Pulse Oximetry 100 06/02/25 20:17 Oxygen Delivery Room Air 06/02/25 20:17 MDM - Fall MDM Narrative Medical decision making narrative: The patient was evaluated by myself in the emergency department. History is obtained from patient who is an independent historian and physical exam was performed. External medical records were reviewed at this time. Imaging studies obtained included CT brain and C-spine without IV contrast, x-rays of the bilateral knees, left elbow and left shoulder which was independently interpreted by me revealing no acute process, which is pending final radiology interpretation. Differential diagnosis considerations include fractures, dislocations, intracranial hemorrhage, musculoskeletal strain. Comorbidities impacting this visit include none. I have evaluated and discussed social determinants of health with the patient that could potentially impact subsequent diagnosis and treatment plans. On repeat assessment of the patient, reevaluation revealed that the patient is doing well and is in no acute distress. Patient symptoms have improved since she arrived to our emergency department. Repeat vital signs were all reviewed and noted to be stable. Differential diagnosis and treatment plan were discussed with the patient at bedside. Patient agrees with discussion and after shared medical decision making agrees with discharge. All questions were answered to the patient's satisfaction. Patient will follow up with her PCP in 3-5 days. Patient was provided with strict return precautions and instructed to return to the emergency department if any new or worsening symptoms develop. The patient was discharged in stable condition. Discharge Plan Discharge Clinical Impression: Fall from ground level, Head injury Patient Disposition: Home Condition: Improved Instructions: Antibiotic Form, Fall Prevention for Older Adults (ED), Head Injury (ED) Additional Instructions: Please follow-up with your family doctor within the next 3-5 days. Return to emergency department if any new or worsening symptoms develop. Patient Language: [place] Prescriptions: No Action buspirone 5 mg tablet 10 mg PO BID benztropine 0.5 mg tablet 0.5 mg PO BID atorvastatin 10 mg tablet 10 mg PO DAILY sennosides-docusate sodium [Senexon-S] 8.6-50 mg tablet 1 tab-cap PO QHS venlafaxine 150 mg capsule,extended release 24hr 150 mg PO DAILY famotidine 20 mg tablet 20 mg PO DAILY montelukast 10 mg tablet 10 mg PO DAILY polyethylene glycol 3350 17 gram/dose powder 17 g PO DAILY acetaminophen 500 mg capsule 500 mg PO Q6H PRN paliperidone 6 mg tablet extended release 24 hr 6 mg PO QAM mirabegron [Myrbetriq] 50 mg tablet extended release 24 hr 50 mg PO DAILY guaifenesin [Mucinex] 600 mg tablet extended release 12hr 600 mg PO BID diclofenac sodium-menthol 1.5-10 % combo pack topical cefuroxime axetil 500 mg tablet 500 mg PO BID Qty: 14 0RF Follow-up/Referrals: Camden Patel MD [Physician, Family Practice] - 3 Days UNKNOWN,DOCTOR [Primary Care Provider] - 3 Days Time of Disposition: 23:25
[2025-06-03 00:38] VITALS: BP 110/59; PULSE 71; RESP 18; O2SAT 100
[2025-06-03 03:47] VITALS: BP 132/78; PULSE 62; RESP 18; O2SAT 99
== END 2025-06-03 03:48 | disposition home or self-care (01) ==
PROVIDERS: Emergency Provider Emergency Medicine
DX: S09.90XA Unspecified injury of head, initial encounter (principal); W18.30XA Fall on same level, unspecified, initial encounter
CPT/HCPCS: 70450; 72125; 73030; 73080; 73562; 99284